=== PATIENT | female | born 1960 | race Two or more races ===

== ENCOUNTER 2018-04-16 06:11 | Day surgery (SDC) | payer OTHER ==
[2018-04-14 18:01] VITALS: BMI 32.3
[2018-04-16] MEDS ORDERED: LIDOCAINE HCL 1%, 10 MG/ML (20ML VIAL) ONE (07:36)
[2018-04-16] MEDS ORDERED: BUPIVACAINE HCL/PF 0.5% (5MG/ML) 10 ML VIAL ONE (07:36)
[2018-04-16] MEDS ORDERED: DEXAMETHASONE SOD PHOSPHATE 4 MG/1 ML VIAL ONE (07:36)
[2018-04-16] MEDS ORDERED: PROPOFOL 20 ML ONE ×3 (07:59→08:02)
[2018-04-16] MEDS ORDERED: MIDAZOLAM HCL 2 MG/2 ML SINGLE DOSE VIAL ONE (07:59)
[2018-04-16] MEDS ORDERED: LIDOCAINE HCL/PF 2% SDV 5ML VIAL ONE (08:02)
[2018-04-16] MEDS ORDERED: ceFAZolin SODIUM 1 GM VIAL ONE (08:17)
[2018-04-16] MEDS ORDERED: LIDOCAINE HCL 1%, 10 MG/ML (20ML VIAL) PNB ONE (08:33)
[2018-04-16] MEDS ORDERED: BUPIVACAINE HCL/PF 0.5% (5MG/ML) 10 ML VIAL PNB ONE (08:33)
[2018-04-16] MEDS ORDERED: KETOROLAC TROMETHAMINE 30 MG/1 ML VIAL ONE (08:45)
[2018-04-16] MEDS ORDERED: ACETAMINOPHEN 500 MG TABLET (FP) PO PRN (09:05)
[2018-04-16] MEDS ORDERED: ONDANSETRON 4 MG/2 ML VIAL IVPUSH PRN (09:05)
[2018-04-16] MEDS ORDERED: oxyCODONE HCL 5 MG TABLET PO PRN (09:07)
[2018-04-16] MEDS ORDERED: LACTATED RINGERS SOLUTION 1,000 ML IV SCH (09:15)
[2018-04-16 13:27] VITALS: BP 144/89; PULSE 87; TEMP 97.4
--- NOTE | 2018-04-19 16:54 | PATH ---
Surgical Pathology Report Patient Name: JOMAR BUTLER [facility]. Rec. #: [id number] /Age/Gender: 1960 (Age: 57) / F Account: [id number] Location: [facility] SURGICAL Taken: 04/16/2018 Received: 04/16/2018 Reported: 04/19/2018 Physicians: Hafsa Ramey DPM Specimen(s) Received BONE AND SOFT TISSUE FROM RIGHT 2ND TOE Clinical History Right foot second digit hammertoe Final Diagnosis BONE, SKIN, AND SOFT TISSUE, FOOT, RIGHT, HAMMER TOE REPAIR: BONE WITH DEGENERATIVE CHANGES AND FATTY MARROW. SKIN WITHOUT SIGNIFICANT PATHOLOGIC FINDINGS. Electronically Signed Sarah Jo M.D. Gross Description Received in formalin labeled "bone and skin right foot," are 2 hinkle portions of bone measuring 0.7 x 0.5 x 0.2 cm and 1.1 x 0.6 x 0.5 cm. Also received in the same container is a 2.0 x 0.3 cm hinkle, elliptical, unremarkable portion of skin. Fruit Loader Machine Operator sections are submitted in one cassette, following decalcification. /04/16/2018 saudi04/16/2018
--- NOTE | 2018-04-20 11:26 | OP ---
DATE OF OPERATION: 04/16/2018 SURGEON: Hafsa Ramey DPM DIMENSIONAL ENGINEER: Dori García PGY3 and Dr. Mahoney PREOPERATIVE DIAGNOSIS: Right foot 2nd hammer toe. POSTOPERATIVE DIAGNOSIS: Right foot 2nd hammer toe. PROCEDURE: Right foot 2nd toe arthroplasty. ANESTHESIA: Local with MAC. PATHOLOGY: Right foot bone and soft tissue. ESTIMATED BLOOD LOSS: 2 mL. HEMOSTASIS: Right ankle tourniquet at 250 mmHg. MATERIALS USED: 3-0 Vicryl suture, 4-0 nylon suture, Betadine-soaked Adaptic, dry sterile dressing, and Fidel bandage. INJECTABLES: Preoperative 1:1 mixture of 1% lidocaine plain and 0.5% Marcaine plain 10 mL infiltrated at the surgical site 2nd toe right foot. DESCRIPTION OF PROCEDURE: The patient was brought to the operating room and placed on the operating table in a supine position. A pneumatic ankle tourniquet was then placed on the patient's right ankle. Following IV sedation, local anesthesia was obtained using a 1:1 mixture of 1% lidocaine plain and 0.5% Marcaine plain. Preoperatively 10 mL was injected to the surgical site. The right foot was then scrubbed, prepped, and draped in the usual aseptic manner. An Esmarch bandage was then utilized to exsanguinate the patient's right foot, and a tourniquet was inflated. Attention was first directed to the dorsal aspect of the 2nd digit interphalangeal joint where a semi-elliptical incision was made using a No. 15 blade, and a skin wedge was removed from the operative field and sent to Pathology. At this time, the extensor tendon was tenotomized at the interphalangeal joint, and the head of the proximal phalanx was freed from its capsular and ligamentous attachment medially and laterally exposing the head of the proximal phalanx. At this time, using sagittal saw, the head of the proximal phalanx was resected and passed from the operative field and sent to Pathology. The position of the 2nd digit hammer toe appeared to be reduced and in a straight position within the same as digit 3. At this time, the wound was irrigated with copious amount of normal saline. Using 3-0 Vicryl suture, the extensor tendon was sutured and reapproximated, and the skin was closed using 4-0 nylon suture in a simple suture fashion. Postoperative dressing such as Betadine-soaped Adaptic and dry sterile dressing applied to the right foot such as sterile gauze, Sunil, and Fidel bandage. The ankle tourniquet was deflated at this time, and immediate hyperemia was noted to all digits of the right foot. The patient tolerated the procedure and anesthesia well and was transferred to the post anesthesia care unit with vital signs stable and vascular status intact to the right lower extremity. The patient will be discharged home once stable per Anesthesia and was already given instructions and prescriptions for surgery. Dori García, PGY3 dictating for PAOLO Bolton DPM [id number] E
== END 2018-04-16 13:30 | disposition home or self-care (01) ==
LOC: JASU-SURG 06:11
PROVIDERS: ATTEND Podiatrist Foot Surgery
PROC: 0SRP0JZ Replacement of Right Toe Phalangeal Joint with Synthetic Substitute, Open Approach (ICD-10-PCS; principal; 2018-04-16 08:00)
DX: M20.41 Other hammer toe(s) (acquired), right foot (principal)
CPT/HCPCS: 73630-TC-RT-FY; 82962; 88305-TC; 88311-TC; 94760

== ENCOUNTER 2020-08-25 13:03 | Inpatient (IN) | payer OTHER ==
[2020-08-25] MEDS ORDERED: SODIUM CHLORIDE 2,722 ML IV ONE (13:55)
[2020-08-25] MEDS ORDERED: PIPERACILLIN/TAZOB 4.5 GM 4.5 GM in DEXTROSE 5%-WATER 100 ML IVPB ONE (14:30)
[2020-08-25] MEDS ORDERED: VANCOMYCIN 1 GM in D5W (PRE-DOCKED) 1,000 MG/250 ML IVPB ONE (14:31)
[2020-08-25] MEDS ORDERED: PIPERACILLIN/TAZOB 4.5 GM 4.5 GM/100 ML BAG IVPB ONE (14:41)
[2020-08-25] MEDS ORDERED: VANCOMYCIN 1 GRAM (PRE-DOCKED) 1,000 MG/250 ML BAG IVPB ONE (14:42)
[2020-08-25 14:47] LABS: BASO % 0.5 % (0-2.0); EOS % 0.3 % (0-4.5); HEMATOCRIT 33.4 % (32.4-45.2); HEMOGLOBIN 11.5 GM/dL (10.7-15.3); LYMPH % 13.1 % (8-40); MCH 28.7 pg (25.7-33.7); MCHC 34.3 g/dl (32.0-36.0); MEAN CELL VOLUME 83.7 fl (80-96); MEAN PLT VOLUME 9.4 fl (7.5-11.1); MONO % 5.8 % (3.8-10.2); NEUT % 80.3 % (42.8-82.8); PLATELET COUNT 282 K/MM3 (134-434); RBC 3.99 M/mm3 (3.60-5.2); RDW 14.1 % (11.6-15.6); WHITE BLOOD COUNT 11.1 K/mm3 (4.0-10.0)
[2020-08-25 15:05] LABS: INR 0.95 (0.83-1.09); PROTHROMBIN TIME (PATIENT) 11.5 SEC (9.7-13.0)
[2020-08-25 15:07] LABS: ACTIVATED PTT 26.5 SECONDS (25.2-36.5)
[2020-08-25 15:32] LABS: ERYTHROCYTE SEDIMENTATION RATE 95 mm/hr (0-30)
[2020-08-25 15:34] LABS: ALBUMIN 2.3 g/dl (3.4-5.0); ALK PHOS 157 U/L (45-117); ANION GAP 2 MMOL/L (8-16); BILIRUBIN,TOTAL 0.7 mg/dL (0.2-1); BLOOD UREA NITROGEN 31.5 mg/dL (7-18); CHLORIDE 92 mmol/L (98-107); CO2 23 mmol/L (21-32); CREATININE 1.4 mg/dL (0.55-1.3); SGOT/AST 135 U/L (15-37); SGPT/ALT 29 U/L (13-61); TOT PROT 8.4 g/dl (6.4-8.2)
[2020-08-25 15:37] LABS: GLUCOSE,RANDOM 480 mg/dL (74-106); SODIUM 118 mmol/L (136-145)
[2020-08-25 15:38] LABS: POTASSIUM > 10.0 mmol/L (3.5-5.1)
[2020-08-25 16:33] LABS: POTASSIUM 4.6 mmol/L (3.5-5.1)
[2020-08-25 16:35] LABS: ALBUMIN 2.4 g/dl (3.4-5.0); CALCIUM 8.9 mg/dL (8.5-10.1)
[2020-08-25 16:36] LABS: BLOOD UREA NITROGEN 30.3 mg/dL (7-18)
[2020-08-25 16:39] LABS: CREATININE 1.3 mg/dL (0.55-1.3)
[2020-08-25 16:40] LABS: BILIRUBIN,TOTAL 0.4 mg/dL (0.2-1); TOT PROT 6.7 g/dl (6.4-8.2)
[2020-08-25] MEDS ORDERED: INSULIN (LEVEMIR) 100 UNITS/ML UNITS SQ SCH (22:00)
[2020-08-25] MEDS: HEPARIN NA (PORCINE) 5,000 UNITS/ML 1ML VIAL SQ SCH (23:19)
[2020-08-25] MEDS: INSULIN SLIDING SCALE (NOVOLOG) 1 VIAL SQ SCH (23:36)
[2020-08-26] MEDS ORDERED: INSULIN (NOVOLOG) ASPART 100 UNITS/ML 10ML VIAL SQ ONE (00:21)
[2020-08-26 00:24] VITALS: BMI 36.7
[2020-08-26] MEDS: INSULIN (LEVEMIR) 100 UNITS/ML UNITS SQ SCH ×2 (06:20→21:07)
[2020-08-26] MEDS: INSULIN SLIDING SCALE (NOVOLOG) 1 VIAL SQ SCH ×4 (06:21→21:03)
[2020-08-26 09:03] LABS: HEMATOCRIT 31.1 % (32.4-45.2); HEMOGLOBIN 10.5 GM/dL (10.7-15.3); MCH 28.7 pg (25.7-33.7); MCHC 33.8 g/dl (32.0-36.0); MEAN PLT VOLUME 8.8 fl (7.5-11.1); PLATELET COUNT 262 K/MM3 (134-434); RBC 3.66 M/mm3 (3.60-5.2); RDW 13.2 % (11.6-15.6); WHITE BLOOD COUNT 5.9 K/mm3 (4.0-10.0)
[2020-08-26 09:21] LABS: POTASSIUM 4.4 mmol/L (3.5-5.1)
[2020-08-26 09:29] LABS: CALCIUM 8.4 mg/dL (8.5-10.1)
[2020-08-26 09:30] LABS: ALBUMIN 2.2 g/dl (3.4-5.0); BLOOD UREA NITROGEN 27.6 mg/dL (7-18)
[2020-08-26 09:34] LABS: BILIRUBIN,TOTAL 0.3 mg/dL (0.2-1); TOT PROT 6.4 g/dl (6.4-8.2)
[2020-08-26] MEDS: HEPARIN NA (PORCINE) 5,000 UNITS/ML 1ML VIAL SQ SCH ×2 (09:39→21:03)
[2020-08-26] MEDS: VANCOMYCIN 1 GRAM (PRE-DOCKED) 1,000 MG/250 ML BAG IVPB SCH (14:40)
[2020-08-26] MEDS: ACETAMINOPHEN 325 MG TABLET (FP) PO PRN (16:46)
[2020-08-26] MEDS ORDERED: DEXTROSE 5%-WATER - 50 ML IVPB ONE (17:03)
[2020-08-26] MEDS ORDERED: PIPERACILLIN/TAZOBACTAM 3.375 GM VIAL IVPB ONE (17:03)
[2020-08-26] MEDS: PIPERACILLIN/TAZOB 3.375 GM 3.375 GM in DEXTROSE 5%-WATER - 50 ML IVPB SCH (17:08)
[2020-08-27] MEDS ORDERED: PIPERACILLIN/TAZOBACTAM 3.375 GM VIAL IVPB ONE ×3 (00:45→16:48)
[2020-08-27] MEDS ORDERED: DEXTROSE 5%-WATER - 50 ML IVPB ONE ×2 (00:45→08:44)
[2020-08-27] MEDS: PIPERACILLIN/TAZOB 3.375 GM 3.375 GM in DEXTROSE 5%-WATER - 50 ML IVPB SCH ×3 (01:00→18:26)
[2020-08-27] MEDS: VANCOMYCIN 1 GRAM (PRE-DOCKED) 1,000 MG/250 ML BAG IVPB SCH ×2 (01:39→13:15)
[2020-08-27] MEDS: INSULIN SLIDING SCALE (NOVOLOG) 1 VIAL SQ SCH ×4 (06:50→21:14)
[2020-08-27] MEDS: INSULIN (LEVEMIR) 100 UNITS/ML UNITS SQ SCH ×2 (06:51→21:12)
[2020-08-27] MEDS: HEPARIN NA (PORCINE) 5,000 UNITS/ML 1ML VIAL SQ SCH ×2 (09:01→21:11)
[2020-08-27 10:35] LABS: INR 0.9 (0.83-1.09); PROTHROMBIN TIME (PATIENT) 10.9 SEC (9.7-13.0)
[2020-08-27] MEDS: ACETAMINOPHEN 325 MG TABLET (FP) PO PRN (21:10)
[2020-08-28] MEDS ORDERED: PIPERACILLIN/TAZOBACTAM 3.375 GM VIAL IVPB ONE ×3 (02:19→17:12)
[2020-08-28] MEDS ORDERED: DEXTROSE 5%-WATER - 50 ML IVPB ONE ×3 (02:19→17:12)
[2020-08-28] MEDS: PIPERACILLIN/TAZOB 3.375 GM 3.375 GM in DEXTROSE 5%-WATER - 50 ML IVPB SCH ×3 (02:35→17:30)
[2020-08-28] MEDS: VANCOMYCIN 1 GRAM (PRE-DOCKED) 1,000 MG/250 ML BAG IVPB SCH ×2 (02:47→13:30)
[2020-08-28] MEDS: INSULIN SLIDING SCALE (NOVOLOG) 1 VIAL SQ SCH ×4 (06:58→22:02)
[2020-08-28] MEDS: INSULIN (LEVEMIR) 100 UNITS/ML UNITS SQ SCH ×2 (06:58→22:01)
[2020-08-28] MEDS ORDERED: KETAMINE HCL 200 MG/20 ML VIAL ONE (07:15)
[2020-08-28] MEDS ORDERED: SUCCINYLCHOLINE CHLORIDE 200 MG/10 ML SYRINGE ONE (07:15)
[2020-08-28] MEDS ORDERED: PROPOFOL 20 ML ONE ×2 (07:15→07:17)
[2020-08-28] MEDS ORDERED: MIDAZOLAM HCL 2 MG/2 ML SINGLE DOSE VIAL ONE (07:16)
[2020-08-28] MEDS ORDERED: LIDOCAINE HCL 1%, 10 MG/ML (20ML VIAL) ONE (07:18)
[2020-08-28] MEDS ORDERED: BACITRACIN 50,000 UNITS VIAL TP ONE (07:43)
[2020-08-28] MEDS ORDERED: ONDANSETRON 4 MG/2 ML VIAL IVPUSH PRN ×2 (07:53→08:47)
[2020-08-28] MEDS ORDERED: LIDOCAINE HCL 1%, 10 MG/ML (20ML VIAL) PNB ONE (07:59)
[2020-08-28] MEDS ORDERED: LACTATED RINGERS SOLUTION 1,000 ML IV SCH (08:00)
[2020-08-28] MEDS: HEPARIN NA (PORCINE) 5,000 UNITS/ML 1ML VIAL SQ SCH ×2 (11:06→21:56)
[2020-08-28] MEDS ORDERED: INSULIN (NOVOLOG) ASPART 100 UNITS/ML 10ML VIAL ONE ×2 (12:04→17:12)
[2020-08-28] MEDS: LACTATED RINGERS SOLUTION 1,000 ML IV SCH (14:41)
[2020-08-28 16:05] LABS: BASO % 0.6 % (0-2.0); EOS % 2.6 % (0-4.5); HEMATOCRIT 28.9 % (32.4-45.2); HEMOGLOBIN 10.1 GM/dL (10.7-15.3); LYMPH % 21.9 % (8-40); MCHC 34.9 g/dl (32.0-36.0); MEAN CELL VOLUME 83.1 fl (80-96); MEAN PLT VOLUME 8.1 fl (7.5-11.1); NEUT % 65.9 % (42.8-82.8); PLATELET COUNT 290 K/MM3 (134-434); RBC 3.48 M/mm3 (3.60-5.2); RDW 13.4 % (11.6-15.6); WHITE BLOOD COUNT 5.5 K/mm3 (4.0-10.0)
[2020-08-28 16:23] LABS: POTASSIUM 4.3 mmol/L (3.5-5.1)
[2020-08-28 16:24] LABS: CALCIUM 8.7 mg/dL (8.5-10.1)
[2020-08-28 16:30] LABS: TOT PROT 6.2 g/dl (6.4-8.2)
[2020-08-28 16:38] LABS: BILIRUBIN,TOTAL 0.3 mg/dL (0.2-1)
[2020-08-28] MEDS: ACETAMINOPHEN 325 MG TABLET (FP) PO PRN (18:38)
[2020-08-29] MEDS ORDERED: DEXTROSE 5%-WATER - 50 ML IVPB ONE ×3 (00:51→16:42)
[2020-08-29] MEDS ORDERED: PIPERACILLIN/TAZOBACTAM 3.375 GM VIAL IVPB ONE ×3 (00:51→16:42)
[2020-08-29] MEDS: PIPERACILLIN/TAZOB 3.375 GM 3.375 GM in DEXTROSE 5%-WATER - 50 ML IVPB SCH ×3 (01:03→16:51)
[2020-08-29] MEDS: VANCOMYCIN 1 GRAM (PRE-DOCKED) 1,000 MG/250 ML BAG IVPB SCH ×2 (02:12→13:00)
[2020-08-29] MEDS: INSULIN SLIDING SCALE (NOVOLOG) 1 VIAL SQ SCH ×4 (06:19→21:53)
[2020-08-29] MEDS: INSULIN (LEVEMIR) 100 UNITS/ML UNITS SQ SCH ×2 (06:20→21:53)
[2020-08-29] MEDS ORDERED: PT OWN MED DRAWER 7, Y5N ONE (09:44)
[2020-08-29] MEDS: GABAPENTIN 100 MG CAPSULE PO SCH (09:46)
[2020-08-29] MEDS: HEPARIN NA (PORCINE) 5,000 UNITS/ML 1ML VIAL SQ SCH ×2 (09:46→21:55)
[2020-08-29] MEDS: LOSARTAN 50MG/HCTZ 12.5MG 1 TAB PO SCH (09:46)
[2020-08-29] MEDS: LACTATED RINGERS SOLUTION 1,000 ML IV SCH (11:30)
[2020-08-29] MEDS: ACETAMINOPHEN 325 MG TABLET (FP) PO PRN (21:55)
[2020-08-29] MEDS: ATORVASTATIN CA 40 MG TABLET (FP) PO SCH (21:56)
[2020-08-30] MEDS ORDERED: PIPERACILLIN/TAZOBACTAM 3.375 GM VIAL IVPB ONE ×2 (01:30→09:10)
[2020-08-30] MEDS ORDERED: DEXTROSE 5%-WATER - 50 ML IVPB ONE ×2 (01:31→09:10)
[2020-08-30] MEDS: VANCOMYCIN 1 GRAM (PRE-DOCKED) 1,000 MG/250 ML BAG IVPB SCH (02:11)
[2020-08-30] MEDS: PIPERACILLIN/TAZOB 3.375 GM 3.375 GM in DEXTROSE 5%-WATER - 50 ML IVPB SCH ×2 (02:11→09:32)
[2020-08-30] MEDS: INSULIN (LEVEMIR) 100 UNITS/ML UNITS SQ SCH ×2 (06:39→21:54)
[2020-08-30] MEDS: INSULIN SLIDING SCALE (NOVOLOG) 1 VIAL SQ SCH ×4 (06:40→21:55)
[2020-08-30] MEDS ORDERED: PT OWN MED DRAWER 7, Y5N ONE (09:10)
[2020-08-30] MEDS: LACTATED RINGERS SOLUTION 1,000 ML IV SCH (09:32)
[2020-08-30] MEDS: GABAPENTIN 100 MG CAPSULE PO SCH (09:32)
[2020-08-30] MEDS: HEPARIN NA (PORCINE) 5,000 UNITS/ML 1ML VIAL SQ SCH ×2 (09:32→21:54)
[2020-08-30] MEDS: LOSARTAN 50MG/HCTZ 12.5MG 1 TAB PO SCH (09:33)
[2020-08-30] MEDS ORDERED: INSULIN (NOVOLOG) ASPART 100 UNITS/ML 10ML VIAL ONE (11:07)
[2020-08-30] MEDS: AMOX TR/POT CLAV 875MG/125MG TABLETS (FP) PO SCH (17:08)
[2020-08-30] MEDS: ATORVASTATIN CA 40 MG TABLET (FP) PO SCH (21:54)
[2020-08-31] MEDS: INSULIN SLIDING SCALE (NOVOLOG) 1 VIAL SQ SCH ×2 (06:40→12:42)
[2020-08-31] MEDS: INSULIN (LEVEMIR) 100 UNITS/ML UNITS SQ SCH (06:41)
[2020-08-31] MEDS ORDERED: INSULIN (NOVOLOG) ASPART 100 UNITS/ML 10ML VIAL ONE (06:51)
[2020-08-31] MEDS: HEPARIN NA (PORCINE) 5,000 UNITS/ML 1ML VIAL SQ SCH (09:54)
[2020-08-31] MEDS: ACETAMINOPHEN 325 MG TABLET (FP) PO PRN (09:55)
[2020-08-31] MEDS: AMOX TR/POT CLAV 875MG/125MG TABLETS (FP) PO SCH (09:55)
[2020-08-31] MEDS: GABAPENTIN 100 MG CAPSULE PO SCH (09:55)
[2020-08-31] MEDS: LOSARTAN 50MG/HCTZ 12.5MG 1 TAB PO SCH (09:56)
[2020-08-31] MEDS: LACTATED RINGERS SOLUTION 1,000 ML IV SCH (09:56)
[2020-08-31 12:47] VITALS: TEMP 97.9
[2020-08-31 13:39] VITALS: BP 148/81; PULSE 83
== END 2020-08-31 14:45 | disposition home health service (06) | DRG 264 ==
LOC: JER 13:03 → JERBED 15:54 → J6S 23:10
PROVIDERS: ADMIT Family Medicine; ATTEND Family Medicine
PROC: 0JU Subcutaneous Tissue and Fascia, Supplement (ICD-10-PCS; 2020-08-28)
PROC: 0Y9N0ZX Drainage of Left Foot, Open Approach, Diagnostic (ICD-10-PCS; 2020-08-28)
PROC: 0JBR0ZZ Excision of Left Foot Subcutaneous Tissue and Fascia, Open Approach (ICD-10-PCS; principal; 2020-08-28 07:30)
DX: E11.52 Type 2 diabetes mellitus with diabetic peripheral angiopathy with gangrene (principal); L02.612 Cutaneous abscess of left foot; N17.9 Acute kidney failure, unspecified; E87.1 Hypo-osmolality and hyponatremia; L97.528 Non-pressure chronic ulcer of other part of left foot with other specified severity; M86.8X8 Other osteomyelitis, other site; I96 Gangrene, not elsewhere classified; L03.032 Cellulitis of left toe; E11.65 Type 2 diabetes mellitus with hyperglycemia; E11.621 Type 2 diabetes mellitus with foot ulcer; E78.5 Hyperlipidemia, unspecified; E11.69 Type 2 diabetes mellitus with other specified complication; B96.1 Klebsiella pneumoniae [K. pneumoniae] as the cause of diseases classified elsewhere; B95.1 Streptococcus, group B, as the cause of diseases classified elsewhere; B95.7 Other staphylococcus as the cause of diseases classified elsewhere; I10 Essential (primary) hypertension; K21.9 Gastro-esophageal reflux disease without esophagitis; Z89.421 Acquired absence of other right toe(s); E86.0 Dehydration; D64.9 Anemia, unspecified
CPT/HCPCS: 36415; 71045-TC-FY; 73630-TC-LT; 73718-TC-LT; 80053; 82962; 83036; 83605; 84443; 84484; 85025; 85027; 85610; 85651; 85730; 86140; 86850; 86900; 86901; 87040; 87070; 87077; 87186; 87205; 88304-TC; 93005; 93010; 94760; 99285-25; C9803; G0480; J1644; U0003

== ENCOUNTER 2021-06-25 11:01 | Emergency (ER) | payer OTHER ==
[2021-06-25 11:09] VITALS: BP 112/72; PULSE 93; TEMP 98.2; BMI 36.6
== END 2021-06-25 14:35 | disposition home or self-care (01) ==
LOC: JER 11:01
DX: R05.9 Cough, unspecified (principal)
CPT/HCPCS: 71046-TC-FY; 87804; 99284-25; C9803; U0003; U0005

== ENCOUNTER 2023-02-27 09:23 | Day surgery (SDC) | payer OTHER ==
[2023-02-26 09:59] VITALS: BMI 33.9
[2023-02-27] MEDS ORDERED: HEPARIN NA (PORCINE) 5,000 UNITS/ML 1ML VIAL ONE (11:33)
[2023-02-27] MEDS ORDERED: LIDOCAINE HCL 1%, 10 MG/ML (20ML VIAL) ONE (11:33)
[2023-02-27] MEDS: ceFAZolin SODIUM 1 GM VIAL IVPB ONE ×2 (13:20→15:44)
[2023-02-27] MEDS ORDERED: LIDOCAINE HCL 1%, 10 MG/ML (20ML VIAL) INF ONE (13:35)
[2023-02-27] MEDS ORDERED: IOVERSOL 300 MG/ML ML IV ONE (13:35)
[2023-02-27] MEDS ORDERED: CLOPIDOGREL BISULFATE 75 MG TABLET (FP) PO ONE (14:26)
[2023-02-27 16:22] VITALS: RESP 18
[2023-02-27 16:51] VITALS: BP 138/84; PULSE 74; TEMP 97.3
== END 2023-02-27 17:10 | disposition home or self-care (01) ==
LOC: JASU-SURG 09:23
PROVIDERS: ATTEND Surgery Vascular Surgery
PROC: 047R3ZZ Dilation of Right Posterior Tibial Artery, Percutaneous Approach (ICD-10-PCS; principal; 2023-02-27 12:45)
DX: E11.621 Type 2 diabetes mellitus with foot ulcer (principal); L97.519 Non-pressure chronic ulcer of other part of right foot with unspecified severity
CPT/HCPCS: 37229; 37233; C1885; C2623; 76000-TC-FY; 82962; 94760; C1724; C1760; C1769; J1644

== ENCOUNTER 2023-10-22 07:58 | Inpatient (IN) | payer OTHER ==
[2023-10-22 10:21] LABS: BASO % 0.4 % (0-2.0); EOS % 3.1 % (0-4.5); HEMATOCRIT 34.4 % (32.4-45.2); HEMOGLOBIN 11.7 GM/dL (10.7-15.3); LYMPH % 24.8 % (8-40); MCH 28.4 pg (25.7-33.7); MCHC 34.1 g/dl (32.0-36.0); MEAN CELL VOLUME 83.4 fl (80-96); MEAN PLT VOLUME 8.4 fl (7.5-11.1); MONO % 6.5 % (3.8-10.2); NEUT % 65.2 % (42.8-82.8); PLATELET COUNT 283 10^3/uL (134-434); RBC 4.12 M/mm3 (3.60-5.2); RDW 13.9 % (11.6-15.6); WHITE BLOOD COUNT 6.4 K/mm3 (4.0-10.0)
[2023-10-22] MEDS ORDERED: PIPERACILLIN/TAZOB 4.5 GM 4.5 GM/100 ML BAG IVPB ONE (10:29)
[2023-10-22 10:39] LABS: INR 0.85 (0.83-1.09); PROTHROMBIN TIME (PATIENT) 9.7 SEC (9.7-13.0)
[2023-10-22 10:41] LABS: ACTIVATED PTT 32.9 SECONDS (25.2-36.5); POTASSIUM 5.2 mmol/L (3.5-5.1)
[2023-10-22 10:43] LABS: CALCIUM 8.7 mg/dL (8.5-10.1)
[2023-10-22 10:44] LABS: ALBUMIN 2.6 g/dl (3.4-5.0)
[2023-10-22 10:47] LABS: CREATININE 1.2 mg/dL (0.55-1.3)
[2023-10-22 10:49] LABS: BILIRUBIN,TOTAL 0.4 mg/dL (0.2-1); TOT PROT 6.7 g/dl (6.4-8.2)
[2023-10-22] MEDS: VANCOMYCIN 1 GM PREMIX - 1 GM/200 ML BAG IVPB ONE (11:18)
[2023-10-22] MEDS ORDERED: VANCOMYCIN 1 GRAM (PRE-DOCKED) 1,000 MG/250 ML BAG IVPB ONE (12:00)
[2023-10-22] MEDS: PIPERACILLIN/TAZOB 4.5 GM 4.5 GM in DEXTROSE 5%-WATER 100 ML IVPB ONE (12:18)
[2023-10-22 13:26] VITALS: BMI 36.3
[2023-10-22] MEDS: COLLAGENASE CLOSTRIDIUM HIST. 30 GRAMS TUBE TP SCH (14:45)
[2023-10-22] MEDS: VANCOMYCIN/WATER FOR INJ (PEG) 1,000 MG/200 ML BAG IVPB ONE (14:58)
[2023-10-22] MEDS: PIPERACILLIN/TAZOB 3.375 GM 3.375 GM in DEXTROSE 5%-WATER - 50 ML IVPB SCH (17:13)
[2023-10-22] MEDS: INSULIN (LEVEMIR) 100 UNITS/ML UNITS SQ SCH (21:24)
[2023-10-22] MEDS: ATORVASTATIN CA 40 MG TABLET (FP) PO SCH (21:25)
[2023-10-22] MEDS: INSULIN ASPART SLIDING SCALE (NOVOLOG) 1 VIAL SQ SCH (21:25)
[2023-10-23] MEDS: DEXAMETHASONE SOD PHOSPHATE 4 MG/1 ML VIAL IVPUSH ONE
[2023-10-23] MEDS ORDERED: LIDOCAINE HCL 1%, 10 MG/ML (20ML VIAL) ONE (07:17)
[2023-10-23] MEDS ORDERED: DEXAMETHASONE SOD PHOSPHATE 4 MG/1 ML VIAL ONE (07:18)
[2023-10-23] MEDS ORDERED: GENTAMICIN SO4 80 MG/2 ML VIAL ONE (07:18)
[2023-10-23] MEDS ORDERED: BUPIVACAINE HCL/PF 0.5% (5MG/ML) 10 ML VIAL ONE (07:18)
[2023-10-23 08:22] LABS: BASO % 0.4 % (0-2.0); HEMATOCRIT 33.2 % (32.4-45.2); HEMOGLOBIN 10.8 GM/dL (10.7-15.3); LYMPH % 10.3 % (8-40); MCH 27.4 pg (25.7-33.7); MCHC 32.6 g/dl (32.0-36.0); MEAN CELL VOLUME 83.9 fl (80-96); MEAN PLT VOLUME 8.4 fl (7.5-11.1); MONO % 8.9 % (3.8-10.2); NEUT % 76.4 % (42.8-82.8); PLATELET COUNT 242 10^3/uL (134-434); RBC 3.96 M/mm3 (3.60-5.2); RDW 13.7 % (11.6-15.6); WHITE BLOOD COUNT 5.3 K/mm3 (4.0-10.0)
[2023-10-23 08:25] LABS: POTASSIUM 4.8 mmol/L (3.5-5.1)
[2023-10-23 08:28] LABS: ALBUMIN 2.2 g/dl (3.4-5.0); CALCIUM 8.5 mg/dL (8.5-10.1)
[2023-10-23 08:29] LABS: BLOOD UREA NITROGEN 41.2 mg/dL (7-18)
[2023-10-23 08:31] LABS: CREATININE 1.8 mg/dL (0.55-1.3)
[2023-10-23 08:33] LABS: BILIRUBIN,TOTAL 0.5 mg/dL (0.2-1)
[2023-10-23] MEDS ORDERED: PROPOFOL 20 ML ONE (08:37)
[2023-10-23] MEDS ORDERED: MIDAZOLAM HCL 2 MG/2 ML SINGLE DOSE VIAL ONE ×2 (08:37→08:46)
[2023-10-23] MEDS: LIDOCAINE HCL 1%, 10 MG/ML (20ML VIAL) INF ONE ×2 (08:40)
[2023-10-23] MEDS: GENTAMICIN SO4 80 MG/2 ML VIAL IVPB ONE ×2 (08:40)
[2023-10-23] MEDS: BUPIVACAINE HCL/PF 0.5% (5 MG/ML) 30 ML VIAL IJ ONE ×2 (08:40)
[2023-10-23] MEDS ORDERED: VANCOMYCIN 500 MG VIAL (RESTRICTED TO ID ONLY) ONE (08:48)
[2023-10-23] MEDS ORDERED: FENTANYL CITRATE/PF 50 MCG/ML VIAL ONE (09:00)
[2023-10-23] MEDS: PIPERACILLIN/TAZOB 3.375 GM 3.375 GM in DEXTROSE 5%-WATER - 50 ML IVPB SCH (10:30)
[2023-10-23 10:42] LABS: BASO % 0.5 % (0-2.0); EOS % 3.9 % (0-4.5); HEMATOCRIT 31.4 % (32.4-45.2); HEMOGLOBIN 10.7 GM/dL (10.7-15.3); LYMPH % 13.8 % (8-40); MCH 28.2 pg (25.7-33.7); MCHC 33.9 g/dl (32.0-36.0); MEAN CELL VOLUME 83.1 fl (80-96); MONO % 8.2 % (3.8-10.2); NEUT % 73.6 % (42.8-82.8); PLATELET COUNT 226 10^3/uL (134-434); RBC 3.78 M/mm3 (3.60-5.2); RDW 13.9 % (11.6-15.6); WHITE BLOOD COUNT 5.1 K/mm3 (4.0-10.0)
[2023-10-23] MEDS: INSULIN ASPART SLIDING SCALE (NOVOLOG) 1 VIAL SQ SCH (12:33)
[2023-10-23] MEDS: LOSARTAN 50MG/HCTZ 12.5MG 1 TAB PO SCH ×2 (13:20→14:20)
[2023-10-23] MEDS: GABAPENTIN 100 MG CAPSULE PO SCH ×2 (13:21→14:19)
[2023-10-23] MEDS: EMPAGLIFLOZIN (JARDIANCE) 10 MG TABLET PO SCH ×2 (13:21→14:20)
[2023-10-23 16:27] VITALS: RESP 18
[2023-10-23] MEDS: SODIUM CHLORIDE 0.45% 1,000 ML IV SCH (19:47)
[2023-10-23] MEDS: INSULIN (LEVEMIR) 100 UNITS/ML UNITS SQ SCH (22:22)
[2023-10-23] MEDS: ATORVASTATIN CA 40 MG TABLET (FP) PO SCH (22:23)
[2023-10-24 09:03] LABS: POTASSIUM 4.5 mmol/L (3.5-5.1)
[2023-10-24 09:29] LABS: CALCIUM 8.9 mg/dL (8.5-10.1)
[2023-10-24 09:30] LABS: ALBUMIN 2.2 g/dl (3.4-5.0); BLOOD UREA NITROGEN 37.5 mg/dL (7-18)
[2023-10-24 09:33] LABS: CREATININE 1.9 mg/dL (0.55-1.3)
[2023-10-24 09:34] LABS: BILIRUBIN,TOTAL 0.5 mg/dL (0.2-1)
[2023-10-24 09:35] LABS: TOT PROT 5.9 g/dl (6.4-8.2)
[2023-10-24] MEDS: COLLAGENASE CLOSTRIDIUM HIST. 30 GRAMS TUBE TP SCH (09:53)
[2023-10-24] MEDS: INSULIN (LEVEMIR) 100 UNITS/ML UNITS SQ SCH (22:05)
[2023-10-26] MEDS ORDERED: PIPERACILLIN/TAZOBACTAM 3.375 GM VIAL IVPB ONE (01:08)
[2023-10-26] MEDS ORDERED: VALSARTAN 160 MG TABLET PO SCH (10:00)
[2023-10-26] MEDS: amLODIPine BESYLATE 5 MG TABLET (FP) PO SCH (10:54)
[2023-10-26 11:23] LABS: POTASSIUM 4.3 mmol/L (3.5-5.1)
[2023-10-26 11:25] LABS: CALCIUM 8.8 mg/dL (8.5-10.1)
[2023-10-26 11:26] LABS: ALBUMIN 2.2 g/dl (3.4-5.0); BLOOD UREA NITROGEN 36.1 mg/dL (7-18)
[2023-10-26 11:29] LABS: CREATININE 2.1 mg/dL (0.55-1.3)
[2023-10-26 11:30] LABS: TOT PROT 6.1 g/dl (6.4-8.2)
[2023-10-26 11:31] LABS: BILIRUBIN,TOTAL 0.3 mg/dL (0.2-1)
[2023-10-26] MEDS: INSULIN (LEVEMIR) 100 UNITS/ML UNITS SQ SCH (21:21)
[2023-10-26] MEDS: ACETAMINOPHEN 500 MG TABLET (FP) PO ONE (23:49)
[2023-10-27 08:38] LABS: POTASSIUM 4.2 mmol/L (3.5-5.1)
[2023-10-27 08:41] LABS: CALCIUM 9.2 mg/dL (8.5-10.1)
[2023-10-27 08:42] LABS: ALBUMIN 2.2 g/dl (3.4-5.0); BLOOD UREA NITROGEN 35.3 mg/dL (7-18)
[2023-10-27 08:45] LABS: CREATININE 1.7 mg/dL (0.55-1.3)
[2023-10-27 08:46] LABS: BILIRUBIN,TOTAL 0.3 mg/dL (0.2-1); TOT PROT 6.3 g/dl (6.4-8.2)
[2023-10-27 09:26] VITALS: BP 142/72; PULSE 70; TEMP 98.6
[2023-10-27] MEDS: POLYETHYLENE GLYCOL (HEALTHYLAX) 3350 17 GM PACKET PO SCH (16:44)
== END 2023-10-27 16:56 | disposition home or self-care (01) | DRG 630 ==
LOC: JER 07:58 → JERBED 10:43 → J5S 12:43
PROVIDERS: ADMIT Internal Medicine; ATTEND Internal Medicine
PROC: 0QBQ0ZZ Excision of Right Toe Phalanx, Open Approach (ICD-10-PCS; principal; 2023-10-23 08:45)
DX: E11.621 Type 2 diabetes mellitus with foot ulcer (principal); E11.51 Type 2 diabetes mellitus with diabetic peripheral angiopathy without gangrene; I10 Essential (primary) hypertension; K21.9 Gastro-esophageal reflux disease without esophagitis; L97.519 Non-pressure chronic ulcer of other part of right foot with unspecified severity; L08.9 Local infection of the skin and subcutaneous tissue, unspecified; T14.8XXA Other injury of unspecified body region, initial encounter; N17.9 Acute kidney failure, unspecified; E11.65 Type 2 diabetes mellitus with hyperglycemia; X58.XXXA Exposure to other specified factors, initial encounter; Y93.89 Activity, other specified; Y92.9 Unspecified place or not applicable; Y99.9 Unspecified external cause status
CPT/HCPCS: 36415; 73630-TC-RT-FY; 76775-TC; 80053; 82962; 83735; 84100; 84443; 85025; 85610; 85651; 85730; 86140; 86850; 86900; 86901; 87040; 87070; 87075; 87077; 87186; 87205; 88304-TC; 88311-TC; 93005; 93010; 94760; 99285-25